=== PATIENT | male | born 1935 | race African-American/Black ===

== ENCOUNTER 2016-07-24 10:33 | Emergency (ER) | payer OTHER ==
[2016-07-24] MEDS ORDERED: AMIODARONE HCL 900 MG in DEXTROSE 500 ML IV SCH (10:47)
[2016-07-24] MEDS ORDERED: CALCIUM CHLOR(10%) 100MG/ML 10ML SYRINGE IV ONE (11:00)
[2016-07-24] MEDS ORDERED: DOPamine 1600MCG/ML 400MG/250ML PREMIX BAG IV ONE (11:00)
[2016-07-24] MEDS ORDERED: EPINEPHrine HCL 1 MG/10 ML SYRG IV ONE (11:00)
[2016-07-24] MEDS ORDERED: ATROPINE SULF 0.5 MG/5ML SYR IV ONE (11:00)
[2016-07-24] MEDS ORDERED: DEXTROSE (50%) 50ML SYRG IV ONE (11:00)
[2016-07-24] MEDS ORDERED: SODIUM BICARBONATE 8.4% INJ 50ML SYRINGE IV ONE (11:00)
[2016-07-24] MEDS ORDERED: AMIODARONE HCL (50 MG/ ML) 3 ML VIAL IV ONE (11:00)
[2016-07-24] MEDS ORDERED: NOREPINEPHRINE BITARTRATE 250 ML IV ONE (11:10)
[2016-07-24 11:25] VITALS: BP 41/22
[2016-07-24 11:32] LABS: Basophils # (auto) 0 uL; Basophils % (auto) 0.4 % (0.0-2.0); Eosinophils # (auto) 0.1 uL; Eosinophils % (auto) 1.5 % (0.0-7.0); Hemoglobin 13.2 g/dL (13.5-17.5); Lymphocytes # (auto) 3.2 uL; Lymphocytes % (auto) 49.4 % (10.0-50.0); Mean Corpuscular Hemoglobin 30.9 pg (28.0-32.0); Mean Corpuscular Hgb Conc. 32.2 g/dL (32.0-36.0); Mean Corpuscular Volume 95.8 fL (80.0-100.0); Mean Platelet Volume 9.1 fL (7.4-10.4); Monocytes # (auto) 0.4 uL; Monocytes % (auto) 6.7 % (0.0-12.0); Neutrophils # (auto) 2.7 uL; Platelet Count (auto) 119 10^3/uL (140-450); Red Cell Distribution Width 14.4 % (11.6-16.0); White Blood Cell 6.5 10^3/uL (4.4-10.8)
[2016-07-24 11:56] LABS: Partial Thromboplastin Time 42.2 sec (22.64-33.71)
[2016-07-24 12:06] LABS: Albumin 2.5 g/dL (3.4-5.0); BUN/Creatinine Ratio 11.4; Bilirubin, Total 0.3 mg/dL (0.2-1.0); Calcium 10.5 mg/dL (8.5-10.1); Magnesium 2.9 mg/dL (1.6-2.6); Potassium 3.5 mmol/L (3.5-5.1); Total Protein 5.1 g/dL (6.4-8.2)
[2016-07-24 12:08] LABS: INR 1.35 (0.9-1.15); Prothrombin Time 13.9 sec (9.37-12.3)
== END 2016-07-24 12:47 | disposition expired ==
LOC: ER 10:33
DX: I46.9 Cardiac arrest, cause unspecified (principal)
CPT/HCPCS: 36415; 36600; 51702; 71010; 80053; 82805; 83735; 84484; 85025; 85610; 85730; 92950; 93005; 94002; 99285; J0171; J0282; J0461; J1265; J3490; J7042; J7060